=== PATIENT | female | born 1945 | race Caucasian/White ===

== ENCOUNTER 2021-08-31 18:26 | Inpatient (IN) | payer OTHER, MEDICAID ==
[~2021-08-31] VITALS: Ht 152.4 cm; Wt 58.5 kg
[2021-08-31 18:26] VITALS: BP_SYST 131
[~2021-08-31 18:26] MED LIST: ASA81 PO; BUPR300T55 PO; CHOL200075 PO; CRAN450C PO; DIVA250T PO; DULR10 RC; FOLI-43 PO; LORA-258 PO; MELA1TAB29 PO; MEMA5TAB PO; MULT-1189 PO; PRAV10TA PO; ZOLP5TAB2 PO
--- NOTE | 2021-08-31 19:00 | NUR ---
75yo female pt jenna cerda from [facility] for failure to thrive. Per facility pt lost 5 lbs in 1 week; refusing to eat or take medications. Pt aaox2, bulgarian speaker, c/o pain in bilateral thighs. Pt incontinent with diaper on. No distress at this time. advised of pt arrival.
--- NOTE | 2021-08-31 19:11 | NUR ---
Pt alert, responsive, VSS, NAD.
--- NOTE | 2021-08-31 19:11 | NUR ---
report given to alen emerson. all cares transferred at this time.
--- NOTE | 2021-08-31 19:20 | NUR ---
Dr. Bray at bedside.
[2021-08-31] MEDS ORDERED: NACL 0.9% 1,000 ML IV ONE (19:30)
[2021-08-31 20:24] LABS: ANION GAP 11 (5-15); CALCIUM 9.5 mg/dL (8.4-11.0); CHLORIDE 112 mmol/L (98-107); CREATININE 0.73 mg/dL (0.55-1.30); GLUCOSE 141 mg/dL (70-99); POTASSIUM 3.4 mmol/L (3.5-5.1); SODIUM SERUM 148 mmol/L (136-145); UREA NITROGEN, BLOOD 32 mg/dL (8-21)
[2021-08-31 20:30] LABS: BASOPHILS # (AUTO) 0.1 K/uL (0.0-0.2); BASOPHILS % (AUTO) 0.8 % (0.0-2.0); EOSINOPHILS # (AUTO) 0.7 K/uL (0.0-0.4); EOSINOPHILS % (AUTO) 5.9 % (0.0-4.0); HEMATOCRIT 43.7 % (36-48); HEMOGLOBIN 14.3 g/dL (12.0-16.0); LYMPHOCYTES # (AUTO) 2.9 K/uL (1.0-5.5); LYMPHOCYTES % (AUTO) 24.3 % (20.5-51.5); MEAN CORPUSCULAR HEMOGLOBIN 28 pg (27-31); MEAN CORPUSCULAR HGB CONC 33 % (32-36); MEAN CORPUSCULAR VOLUME 85 fL (79.0-98.0); MONOCYTES % (AUTO) 8.2 % (1.7-9.3); NEUTROPHILS # (AUTO) 7.2 K/uL (1.8-7.7); NEUTROPHILS % (AUTO) 60.8 % (40.0-70.0); PLATELET COUNT (AUTO) 277 K/uL (130-430); RED BLOOD CELL COUNT(AUTO) 5.14 MIL/uL (4.2-6.2); RED CELL DISTRIBUTION WIDTH 15.2 % (9.0-15.0); WHITE BLOOD COUNT (AUTO) 11.8 K/uL (4.8-10.8)
[2021-08-31 20:32] LABS: ALANINE AMINOTRANSFERASE 20 U/L (12-78); ALBUMIN 3.1 g/dL (3.4-4.8); ASPARTATE AMINOTRANSFERASE 28 U/L (10-37); LIPASE 126 U/L (73-393); TOTAL BILIRUBIN 0.4 mg/dL (0.0-1.0)
--- NOTE | 2021-08-31 21:00 | NUR ---
Pt alert, denies c/o pain or discomfort, no needs verbalized. VSS, NAD.
--- NOTE | 2021-09-01 | NUR ---
Warm blanket provided. VSS, NAD.
[2021-09-01] MEDS ORDERED: BENZ1TAB76 PO (00:26)
[2021-09-01] MEDS ORDERED: VITD400 PO (00:26)
[2021-09-01] MEDS ORDERED: LIP10 PO (00:26)
[2021-09-01] MEDS ORDERED: IBUP-2018 PO (00:26)
[2021-09-01] MEDS ORDERED: ANT30 PO (00:26)
[2021-09-01] MEDS ORDERED: TRAZ-250 PO (00:26)
[2021-09-01] MEDS ORDERED: SERT100T PO (00:26)
[2021-09-01] MEDS ORDERED: FAMO40OR4 PO (00:26)
[2021-09-01] MEDS ORDERED: ASCO500T20 PO (00:26)
[2021-09-01] MEDS ORDERED: MEGE400O4 GT (00:26)
--- NOTE | 2021-09-01 01:44 | NUR ---
Admit bed requested Patient will be admitted to care of Dr. De La Garza Admitted to MS unit. Diagnosis Failure to Thrive Inpatient (Yes or No) yes Observation (Yes or No) no Orientation concerns or request close to nursing station (Yes or No) yes Covid Status negative On vent or bipap no Isolation requirements no Needs a sitter no From Home (Yes or if No enter name of facility) [facility] Requires Dialysis (Yes or No) no Med Rec Completed (Yes of No) yes
[2021-09-01] MEDS: KCL 20 mEq in D5/0.45NS 1000mL 1,000 ML IV SCH ×2 (02:44→23:33)
--- NOTE | 2021-09-01 02:50 | NUR ---
Patient will be admitted to care [facility]. Admitted to MED SURG unit. Will go to room 104A. Belongings list completed. Complete and up to date summary report printed. SBAR report to be given at bedside with opportunity for questions.
--- NOTE | 2021-09-01 03:00 | NUR ---
Admission Note Received patient from ER with diagnosis of FAILURE TO THRIVE.
[2021-09-01 03:06] VITALS: BP_SYST 130
--- NOTE | 2021-09-01 07:13 | NUR ---
CLOSING NOTES Patient resting in bed - no s/s pain or distress noted. Respirations even and unlabored - head of bed elevated. IV site patent - no s/s redness, infection, or infiltration. Bed locked and in lowest position. call light within reach - bed alarm on.
[2021-09-01 08:00] VITALS: BP_SYST 134
[2021-09-01] MEDS ORDERED: LORazepam 1 MG TABLET PO PRN (10:00)
[2021-09-01] MEDS ORDERED: SERTRALINE HCL 50 MG TABLET PO SCH (10:00)
[2021-09-01] MEDS ORDERED: IBUPROFEN 400 MG TABLET PO PRN (10:00)
[2021-09-01] MEDS ORDERED: MAG-AL HYDROX/SIMETH 30 ML UDC PO SCH (10:00)
[2021-09-01] MEDS: CHOLECALCIFEROL (VITAMIN D-3) 400 UNIT TABLET PO SCH (10:00)
[2021-09-01 11:26] VITALS: BP_SYST 164
[2021-09-01 12:30] VITALS: BP_SYST 119
[2021-09-01] MEDS: BENZTROPINE MESYLATE 1 MG TABLET PO SCH ×2 (12:53→20:23)
[2021-09-01] MEDS: ASPIRIN 81 MG TAB.CHEW PO SCH (12:53)
[2021-09-01] MEDS: FOLIC ACID 1 MG TABLET PO SCH (12:53)
[2021-09-01] MEDS ORDERED: MEGESTROL ACETATE 400 MG/10 ML UDC GT ONE (13:00)
[2021-09-01] MEDS ORDERED: MEGESTROL ACETATE 400 MG/10 ML UDC PO ONE (13:00)
[2021-09-01 13:58] LABS: BILIRUBIN,URINE NEGATIVE (NEGATIVE); BLOOD, URINE 1+ (NEGATIVE); COLOR,URINE YELLOW (YELLOW); GLUCOSE,URINE NEGATIVE (NEGATIVE); KETONES,URINE NEGATIVE (NEGATIVE); LEUKOCYTE ESTERASE ,URINE 2+ (NEGATIVE); NITRITE, URINE NEGATIVE (NEGATIVE); PROTEIN URINE TRACE (NEGATIVE)
[2021-09-01 14:02] LABS: CLARITY/URINE HAZY (CLEAR)
[2021-09-01 14:10] LABS: RBC,URINE 0-3 /HPF (0-3); WBC,URINE 20-50 /HPF (0-3)
[2021-09-01 14:11] LABS: BACTERIA,URINE FEW /HPF (None Seen); MUCUS,URINE None Seen /LPF (None Seen)
[2021-09-01 15:47] VITALS: BP_SYST 131
--- NOTE | 2021-09-01 16:53 | NUR ---
ST EVALUATION COMPLETED. ST TX NOT INDICATED AT THIS TIME. RECOMMEND PUREE TEXTURE/THIN LIQUID DIET WITH 1:1 SUPERVISION AND ASPIRATION PRECAUTIONS.
[2021-09-01 19:30] VITALS: BP_SYST 136
--- NOTE | 2021-09-01 19:30 | NUR ---
PM ASSESSMENT; -Pt is confused, alert to person. Pt is laying in bed comfortably. No s/s any pain,sob,or any acute distress noted. IV site patent of left wrist, no s/s any infiltration noted. IVF D5 1/2NS +20 mEq KCL @ 75ml/hr. Escobar heels redness slowly blanchable noted. Perineal area redness and intact noted. Keep pt cleaned. Turned & repositioned and q 2 hrs prn. Bed alarmed, side rails x3. Fall precaution in place. Cont to monitor pt.
[2021-09-01] MEDS: MEGESTROL ACETATE 400 MG/10 ML UDC PO SCH (20:23)
[2021-09-01] MEDS: MIRTAZAPINE 15 MG TABLET PO SCH (20:23)
[2021-09-01] MEDS: MEMANTINE HCL 5 MG TABLET PO SCH (20:24)
[2021-09-01] MEDS: ENOXAPARIN SODIUM 40 MG/0.4 ML SYRINGE SUBCUT SCH (20:25)
[2021-09-01] MEDS ORDERED: MEGESTROL ACETATE 400 MG/10 ML UDC GT SCH (21:00)
[2021-09-01] MEDS ORDERED: traZODone HCL 50 MG TABLET (DESYREL) PO SCH (21:00)
--- NOTE | 2021-09-01 22:00 | NUR ---
ROUNDS; -Pt is laying in bed comfortably. No s/s any pain,sob,or any acute distress noted. Turned & repositioned and q 2 hrs prn. Bed alarmed, side rails x3. Fall precaution in place. Cont to monitor pt.
[2021-09-01] MEDS ORDERED: CEFEPIME 1 GM/VIAL (MAXIPIME) ONE (23:16)
[2021-09-01] MEDS: CEFEPIME 1 GM in D5W 50 ML IV SCH (23:31)
[2021-09-02] VITALS: BP_SYST 122
--- NOTE | 2021-09-02 02:00 | NUR ---
ROUNDS; -Pt is asleep. No s/s any pain,sob,or any acute distress noted. Pt's condition stable. IVF infusing well, no s/s any infiltration noted. Turned & repositioned and q 2 hrs prn. Bed alarmed, side rails x3. Fall precaution in place. Cont to monitor pt.
--- NOTE | 2021-09-02 04:00 | NUR ---
ROUNDS; -Pt is asleep. No s/s any chest pain, pain,sob,or any acute distress noted. IVF infusing well, no s/s any infiltration noted. Turned & repositioned and q 2 hrs prn. Bed alarmed, side rails x3. Fall precaution in place. Cont to monitor pt.
[2021-09-02] MEDS: KCL 20 mEq in D5/0.45NS 1000mL 1,000 ML IV SCH ×2 (05:20→18:28)
--- NOTE | 2021-09-02 06:33 | NUR ---
CLOSING NOTES; - Pt is laying in bed comfortably. No s/s any pain,sob,or any acute distress noted. IV site patent of left wrist, no s/s any infiltration noted. IVF D5 1/2NS +20 mEq KCL @ 75ml/hr. Pt is cleaned and dry. Turned & repositioned and q 2 hrs prn. Bed alarmed, side rails x3. Fall precaution in place. Will endorse to next shift RN to [facility] care.
[2021-09-02 07:08] LABS: BASOPHILS # (AUTO) 0.1 K/uL (0.0-0.2); BASOPHILS % (AUTO) 0.6 % (0.0-2.0); EOSINOPHILS # (AUTO) 0.6 K/uL (0.0-0.4); EOSINOPHILS % (AUTO) 6.6 % (0.0-4.0); HEMOGLOBIN 13.5 g/dL (12.0-16.0); LYMPHOCYTES # (AUTO) 3.1 K/uL (1.0-5.5); LYMPHOCYTES % (AUTO) 34.6 % (20.5-51.5); MEAN CORPUSCULAR HEMOGLOBIN 28 pg (27-31); MEAN CORPUSCULAR HGB CONC 33 % (32-36); MEAN CORPUSCULAR VOLUME 86 fL (79.0-98.0); MONOCYTES # (AUTO) 0.6 K/uL (0.0-1.0); NEUTROPHILS # (AUTO) 4.5 K/uL (1.8-7.7); NEUTROPHILS % (AUTO) 51.2 % (40.0-70.0); PLATELET COUNT (AUTO) 212 K/uL (130-430); RED BLOOD CELL COUNT(AUTO) 4.77 MIL/uL (4.2-6.2); RED CELL DISTRIBUTION WIDTH 15.9 % (9.0-15.0); WHITE BLOOD COUNT (AUTO) 8.9 K/uL (4.8-10.8)
[2021-09-02 07:38] LABS: ANION GAP 7 (5-15); CALCIUM 8.1 mg/dL (8.4-11.0); CHLORIDE 113 mmol/L (98-107); CREATININE 0.59 mg/dL (0.55-1.30); GLUCOSE 85 mg/dL (70-99); POTASSIUM 3.7 mmol/L (3.5-5.1); SODIUM SERUM 146 mmol/L (136-145); UREA NITROGEN, BLOOD 15 mg/dL (8-21)
[2021-09-02 08:01] VITALS: BP_SYST 125
--- NOTE | 2021-09-02 08:03 | NUR ---
Initial notes awake, Denies any pain or discomfort. on room air, saturating 100%. IVF infusing well. Safety precaution observed. Bed alarm on. Will monitor.
[2021-09-02] MEDS: CHOLECALCIFEROL (VITAMIN D-3) 400 UNIT TABLET PO SCH (08:30)
[2021-09-02] MEDS: FOLIC ACID 1 MG TABLET PO SCH (08:30)
[2021-09-02] MEDS: ASCORBIC ACID 500 MG TABLET PO SCH ×2 (08:30→21:53)
[2021-09-02] MEDS: MEGESTROL ACETATE 400 MG/10 ML UDC PO SCH ×2 (08:30→21:52)
[2021-09-02] MEDS: BENZTROPINE MESYLATE 1 MG TABLET PO SCH ×2 (08:31→21:53)
[2021-09-02] MEDS: MEMANTINE HCL 5 MG TABLET PO SCH ×2 (08:31→21:53)
[2021-09-02] MEDS: ASPIRIN 81 MG TAB.CHEW PO SCH (08:32)
[2021-09-02] MEDS: CEFEPIME 1 GM in D5W 50 ML IV SCH ×2 (09:59→21:52)
--- NOTE | 2021-09-02 11:00 | NUR ---
Notes- pt refused to eat her breakfast. she only take one bite of her meds mixed with apple sauce .
[2021-09-02 11:25] VITALS: BP_SYST 149
--- NOTE | 2021-09-02 14:07 | NUR ---
Notes Resting. turn and repositioned.No signs of distress noted.
[2021-09-02 15:30] VITALS: BP_SYST 116
--- NOTE | 2021-09-02 18:50 | NUR ---
closing notes Awake, resting. No distress, IVF infusing well.
[2021-09-02 20:00] VITALS: BP_SYST 94
--- NOTE | 2021-09-02 20:00 | NUR ---
Opening notes Pt awake, calm, no s/s distress. VSS. IVF infusing at ordered rate L. wrist wrapped in gauze. Call light within reach. Bed low, locked, siderails up 4, alarm on. Safety maintained. To monitor.
[2021-09-02] MEDS: ENOXAPARIN SODIUM 40 MG/0.4 ML SYRINGE SUBCUT SCH (21:51)
--- NOTE | 2021-09-02 21:52 | NUR ---
Med pass-pt refused meds Pt awake, alert, pt refused meds with applesause. Pt would shake her head and pushed nurse's hand away.
[2021-09-02] MEDS: MIRTAZAPINE 15 MG TABLET PO SCH (21:53)
[2021-09-03 00:05] VITALS: BP_SYST 148
--- NOTE | 2021-09-03 00:05 | NUR ---
Rounds Pt asleep, no s/s distress noted. IVF infusing at ordered rate L. wrist. Bed low, locked, siderails up x4, alarm on. To monitor.
--- NOTE | 2021-09-03 06:30 | NUR ---
Closing notes Pt awake, no s/s distress. IVF infusing at ordered rate L. wrist wrapped in gauze. Call light within reach. Bed low, locked, siderails up 4, alarm on. Safety/isolation maintained. To endorse to AM nurse.
[2021-09-03] MEDS: KCL 20 mEq in D5/0.45NS 1000mL 1,000 ML IV SCH ×2 (06:36→20:42)
[2021-09-03 07:24] LABS: BASOPHILS # (AUTO) 0.1 K/uL (0.0-0.2); BASOPHILS % (AUTO) 0.9 % (0.0-2.0); EOSINOPHILS # (AUTO) 0.4 K/uL (0.0-0.4); EOSINOPHILS % (AUTO) 4.9 % (0.0-4.0); HEMATOCRIT 40.2 % (36-48); HEMOGLOBIN 13.3 g/dL (12.0-16.0); LYMPHOCYTES # (AUTO) 4.2 K/uL (1.0-5.5); LYMPHOCYTES % (AUTO) 47.7 % (20.5-51.5); MEAN CORPUSCULAR HEMOGLOBIN 28 pg (27-31); MEAN CORPUSCULAR HGB CONC 33 % (32-36); MEAN CORPUSCULAR VOLUME 86 fL (79.0-98.0); MONOCYTES # (AUTO) 0.6 K/uL (0.0-1.0); NEUTROPHILS # (AUTO) 3.5 K/uL (1.8-7.7); NEUTROPHILS % (AUTO) 39.5 % (40.0-70.0); PLATELET COUNT (AUTO) 200 K/uL (130-430); RED BLOOD CELL COUNT(AUTO) 4.69 MIL/uL (4.2-6.2); RED CELL DISTRIBUTION WIDTH 15.7 % (9.0-15.0); WHITE BLOOD COUNT (AUTO) 8.8 K/uL (4.8-10.8)
[2021-09-03 08:00] VITALS: BP_SYST 121
[2021-09-03 08:02] LABS: ANION GAP 6 (5-15); CALCIUM 8.3 mg/dL (8.4-11.0); CHLORIDE 112 mmol/L (98-107); CREATININE 0.62 mg/dL (0.55-1.30); GLUCOSE 83 mg/dL (70-99); POTASSIUM 4.1 mmol/L (3.5-5.1); SODIUM SERUM 143 mmol/L (136-145); UREA NITROGEN, BLOOD 9 mg/dL (8-21)
[2021-09-03] MEDS: ASPIRIN 81 MG TAB.CHEW PO SCH (09:00)
[2021-09-03] MEDS: FOLIC ACID 1 MG TABLET PO SCH (09:00)
[2021-09-03] MEDS: ASCORBIC ACID 500 MG TABLET PO SCH ×2 (09:00→20:43)
[2021-09-03] MEDS: CHOLECALCIFEROL (VITAMIN D-3) 400 UNIT TABLET PO SCH (09:00)
[2021-09-03] MEDS: MEGESTROL ACETATE 400 MG/10 ML UDC PO SCH ×2 (09:00→20:43)
[2021-09-03] MEDS: BENZTROPINE MESYLATE 1 MG TABLET PO SCH ×2 (09:00→20:43)
[2021-09-03] MEDS: MEMANTINE HCL 5 MG TABLET PO SCH ×2 (09:00→20:43)
[2021-09-03] MEDS: CEFEPIME 1 GM in D5W 50 ML IV SCH ×2 (10:03→20:41)
[2021-09-03 11:26] VITALS: BP_SYST 132
[2021-09-03 15:31] VITALS: BP_SYST 128
--- NOTE | 2021-09-03 18:45 | NUR ---
PATIENT HAS REFUSED ORAL MEDS AND ORAL INTAKE TODAY. HOB ELEVATED SEMIFOWLER'S POSITION. NO S/S ACUTE DISTRESS NOTED. I SPOKE WITH PT'S SON AND ENCOURAGED FAMILY TO TRY TO COME AND ENCOURAGE PATIENT TO EAT. HE SAID HE DID NOT THINK IT WAS A GOOD IDEA, BECAUSE HE TRIED IT WHEN SHE WAS IN THE SNF AND IT INEFFECTIVE. WILL CONTINUE TO TRY TO ENCOURAGE PO INTAKE. PATIENT EXHIBITS NO S/S ACUTE DISTRESS.
[2021-09-03] MEDS: MIRTAZAPINE 15 MG TABLET PO SCH (20:43)
[2021-09-03] MEDS: ENOXAPARIN SODIUM 40 MG/0.4 ML SYRINGE SUBCUT SCH (20:52)
[2021-09-03 21:00] VITALS: BP_SYST 103
[2021-09-04] VITALS: BP_SYST 109
[2021-09-04 07:36] LABS: BASOPHILS # (AUTO) 0.1 K/uL (0.0-0.2); EOSINOPHILS # (AUTO) 0.5 K/uL (0.0-0.4); EOSINOPHILS % (AUTO) 5.9 % (0.0-4.0); HEMATOCRIT 34.3 % (36-48); HEMOGLOBIN 11.3 g/dL (12.0-16.0); LYMPHOCYTES # (AUTO) 3.5 K/uL (1.0-5.5); LYMPHOCYTES % (AUTO) 44.4 % (20.5-51.5); MEAN CORPUSCULAR HEMOGLOBIN 29 pg (27-31); MEAN CORPUSCULAR HGB CONC 33 % (32-36); MEAN CORPUSCULAR VOLUME 87 fL (79.0-98.0); MONOCYTES # (AUTO) 0.7 K/uL (0.0-1.0); MONOCYTES % (AUTO) 9.1 % (1.7-9.3); NEUTROPHILS # (AUTO) 3.2 K/uL (1.8-7.7); NEUTROPHILS % (AUTO) 39.6 % (40.0-70.0); PLATELET COUNT (AUTO) 181 K/uL (130-430); RED BLOOD CELL COUNT(AUTO) 3.96 MIL/uL (4.2-6.2); RED CELL DISTRIBUTION WIDTH 15.8 % (9.0-15.0)
[2021-09-04 08:00] VITALS: BP_SYST 114
--- NOTE | 2021-09-04 08:00 | NUR ---
Opening Notes Patient is laying in bed awake. A/O x0. Patient does not respond to name, however she is awake. No apparent distress noted. Vitals as charted. Call light within reach. Safety and fall precautions in place. All needs met.
[2021-09-04] MEDS: ASCORBIC ACID 500 MG TABLET PO SCH ×2 (09:00→21:00)
[2021-09-04] MEDS: MEMANTINE HCL 5 MG TABLET PO SCH ×2 (09:00→21:00)
[2021-09-04] MEDS: BENZTROPINE MESYLATE 1 MG TABLET PO SCH ×2 (09:00→22:00)
[2021-09-04] MEDS: CHOLECALCIFEROL (VITAMIN D-3) 400 UNIT TABLET PO SCH (09:00)
[2021-09-04] MEDS: FOLIC ACID 1 MG TABLET PO SCH (09:00)
[2021-09-04] MEDS: ASPIRIN 81 MG TAB.CHEW PO SCH (09:00)
[2021-09-04] MEDS: MEGESTROL ACETATE 400 MG/10 ML UDC PO SCH ×2 (09:00→21:00)
[2021-09-04 09:24] LABS: ANION GAP 9 (5-15); CALCIUM 8.1 mg/dL (8.4-11.0); CHLORIDE 110 mmol/L (98-107); CREATININE 0.59 mg/dL (0.55-1.30); GLUCOSE 105 mg/dL (70-99); POTASSIUM 4.1 mmol/L (3.5-5.1); SODIUM SERUM 139 mmol/L (136-145); UREA NITROGEN, BLOOD 7 mg/dL (8-21)
--- NOTE | 2021-09-04 10:15 | NUR ---
Note Patient refused medication. I encouraged patient and educated on importance of taking medication, patient continued to refuse. Also attempted to help patient eat, she refused. Will continue to encourage food, fluids and medication.
[2021-09-04] MEDS: CEFEPIME 1 GM in D5W 50 ML IV SCH ×2 (10:18→22:42)
[2021-09-04] MEDS: KCL 20 mEq in D5/0.45NS 1000mL 1,000 ML IV SCH ×2 (10:29→22:42)
[2021-09-04 11:25] VITALS: BP_SYST 120
--- NOTE | 2021-09-04 12:20 | NUR ---
Note Spoke to patient's son Narinder and provided an update of patient status. Encouraged Andrew to come visit his mother and also encourage her to eat and take medication. Patient's son states he will not be able to come visit.
[2021-09-04 15:47] VITALS: BP_SYST 130
--- NOTE | 2021-09-04 17:52 | NUR ---
Paged Dr. De La Garza Paged Dr. De La Garza to update on patient status. Patient is refusing to eat or take any medication despite encouragement.
--- NOTE | 2021-09-04 18:19 | NUR ---
Note Made several attempts to encourage patient to eat. Patient became upset and asked me to leave her room. Call light within reach. Safety and fall precautions in place. All needs met.
--- NOTE | 2021-09-04 18:28 | NUR ---
Closing Note Patient is slaying in bed awake. A/O x0. No apparent distress noted. Call light within reach. Safety and fall precautions in place. Encouraged patient to eat, patient not cooperative. Will endorse care to warehouse worker 2nd shift RN.
--- NOTE | 2021-09-04 19:00 | NUR ---
Spoke with Dr. De La Garza Spoke with Dr. De La Garza regarding patient status and refusal to take medication and to eat. He will request a GI consult. No new orders given.
[2021-09-04] MEDS: MIRTAZAPINE 15 MG TABLET PO SCH (21:00)
[2021-09-04] MEDS: ENOXAPARIN SODIUM 40 MG/0.4 ML SYRINGE SUBCUT SCH (21:00)
--- NOTE | 2021-09-04 21:30 | NUR ---
PT REFUSED MEDS. WAS ABLE TO GIVE IV ANTIBIOTICS AND IV FLUIDS. PT KEPT WAVING HANDS IN AIR SIGNALING ME TO LEAVE THE ROOM. ATTEMPTED TO EDUCATED PT ON IMPORTANCE OF MEDICATION
[2021-09-04 21:40] VITALS: BP_SYST 136
--- NOTE | 2021-09-05 02:16 | NUR ---
PT REFUSED MIDNIGHT VITALS WITH ALUMNI COORDINATOR. ASSISTED ALUMNI COORDINATOR WITH ATTEMPTING TO TAKE VITALS BUT PT BEGAN HITTING AT KICKING AT US. VITALS WERE NOT TAKEN
[2021-09-05 08:00] VITALS: BP_SYST 136
--- NOTE | 2021-09-05 08:30 | NUR ---
OPENING NOTE Patient in bed resting with eyes open. Patient is alert and oriented to self. Patient had an excellent appetite and ate 75% of her breakfast and was able to feed herself. IV is clean, dry, intact and running prescribed fluids. Updated the patient on her plan of care for the day. All needs met at this time and safety checks made.
[2021-09-05] MEDS: MEGESTROL ACETATE 400 MG/10 ML UDC PO SCH ×2 (08:53→21:00)
[2021-09-05] MEDS: FOLIC ACID 1 MG TABLET PO SCH (08:53)
[2021-09-05] MEDS: CHOLECALCIFEROL (VITAMIN D-3) 400 UNIT TABLET PO SCH (08:53)
[2021-09-05] MEDS: BENZTROPINE MESYLATE 1 MG TABLET PO SCH ×2 (08:53→21:00)
[2021-09-05] MEDS: MEMANTINE HCL 5 MG TABLET PO SCH ×2 (08:54→21:00)
[2021-09-05] MEDS: ASCORBIC ACID 500 MG TABLET PO SCH ×2 (08:54→21:00)
[2021-09-05] MEDS: ASPIRIN 81 MG TAB.CHEW PO SCH (08:54)
--- NOTE | 2021-09-05 09:02 | NUR ---
VOMIT Patient vomited, stated that she ate too much too quickly. Cleaned patient and provided comfort measures. All needs met at this time.
[2021-09-05] MEDS: CEFEPIME 1 GM in D5W 50 ML IV SCH ×2 (11:07→21:30)
[2021-09-05] MEDS: KCL 20 mEq in D5/0.45NS 1000mL 1,000 ML IV SCH (11:08)
[2021-09-05 11:23] VITALS: BP_SYST 118
--- NOTE | 2021-09-05 15:19 | NUR ---
ROUNDS Patient is awake and resting in bed, oriented to self. Patient has been alert and talkative. No sign of distress and patient denies pain. No vomiting and patient denies nausea. All needs met at this time and safety checks made.
[2021-09-05 15:38] VITALS: BP_SYST 120
--- NOTE | 2021-09-05 19:40 | NUR ---
CLOSING NOTE Patient in bed resting after eating dinner. No sign of distress, patient denies pain. IV is clean, dry, intact and patent running prescribed fluids. Patient tolerating her food well, no complaints of nausea and no vomiting. All needs met at this time and safety checks made. Endorsed to hotel night auditor nurse.
[2021-09-05] MEDS: MIRTAZAPINE 15 MG TABLET PO SCH (21:00)
[2021-09-05] MEDS: ENOXAPARIN SODIUM 40 MG/0.4 ML SYRINGE SUBCUT SCH (21:00)
[2021-09-06 00:31] VITALS: BP_SYST 121
[2021-09-06] MEDS: KCL 20 mEq in D5/0.45NS 1000mL 1,000 ML IV SCH ×2 (02:40→16:00)
--- NOTE | 2021-09-06 06:00 | NUR ---
NO CHANGES NOTED THROUGHOUT THE SHIFT, PT RESTING COMFORTABLY IN BED, AOX1, CONFUSED AND DISORIENTED, NO DISTRESS OR DISCOMFORT NOTED, BREATHING EVEN AND UNLABORED, ALL FALL PROTOCOLS MAINTAINED, REFUSED ALL PO MEDS,ALL CARE RENDERED TO PT AT THIS TIME, WILL ENDORSED TO AM NURSE.
--- NOTE | 2021-09-06 07:25 | NUR ---
SHIFT REPORT REPORT GIVEN TO KAROLINE RN FOR CONTINUITY OF CARE ALL QUESTIONS WERE ANSWERED AND RN VERBALIZED UNDERSTANDING.
[2021-09-06] MEDS: ASCORBIC ACID 500 MG TABLET PO SCH ×2 (08:24→21:00)
[2021-09-06] MEDS: CEFEPIME 1 GM in D5W 50 ML IV SCH ×2 (08:24→21:14)
[2021-09-06] MEDS: CHOLECALCIFEROL (VITAMIN D-3) 400 UNIT TABLET PO SCH (08:24)
[2021-09-06] MEDS: ASPIRIN 81 MG TAB.CHEW PO SCH (08:24)
[2021-09-06] MEDS: BENZTROPINE MESYLATE 1 MG TABLET PO SCH ×2 (08:24→21:00)
[2021-09-06] MEDS: MEGESTROL ACETATE 400 MG/10 ML UDC PO SCH ×2 (08:24→21:00)
[2021-09-06] MEDS: FOLIC ACID 1 MG TABLET PO SCH (08:24)
[2021-09-06] MEDS: MEMANTINE HCL 5 MG TABLET PO SCH ×2 (09:00→21:00)
[2021-09-06 11:32] VITALS: BP_SYST 148
--- NOTE | 2021-09-06 11:36 | NUR ---
CONSULTATION PAGED REASON FOR CONSULTATION:CONFUSION WAS CONSULT CALLED?Y -PERSON WHO WAS NOTIFIED TEXT MESSAGED MASON JAMESON: CONSULTING PHYSICIAN:MASON JAMESON APPLICATION INTEGRATOR SPECIALTY:NEURO APPLICATION INTEGRATOR PHONE NUMBER:[phone] REQUESTING PHYSICIAN:ADOLPH MADRID
--- NOTE | 2021-09-06 11:43 | NUR ---
CONSULTATION PAGED REASON FOR CONSULTATION:PSYCHOSIS WAS CONSULT CALLED?Y -PERSON WHO WAS NOTIFIEDLEFT A VOICEMAIL WITH JOE NUNES: CONSULTING PHYSICIAN:JOE NUNES SLIP FILLER SPECIALTY:PSYCHE SLIP FILLER PHONE NUMBER:[phone] REQUESTING PHYSICIAN:ADOLPH MADRID
[2021-09-06 15:21] VITALS: BP_SYST 134
--- NOTE | 2021-09-06 18:45 | NUR ---
PT HAS HAD A QUIET SHIFT. NOTED PT GOES FROM BEING ALERT AND TALKATIVE TO NOT RESPONDING. MD IS AWARE. PLAN IS TO HAVE A NEURO AND PSYCH CONSULT. PT'S SON VISITED THIS SHIFT. PT WAS NO TALKING AND RESPONDING DURING THIS TIME. RESPIRATIONS EVEN ET UNLABORED. NO S/S ACUTE DISTRESS NOTED.
[2021-09-06 20:00] VITALS: BP_SYST 114
--- NOTE | 2021-09-06 20:00 | NUR ---
REC'D PT IN BED AOX1, NO DISTRESS OR DISCOMFORT NOTED, BREATHING EVEN AND UNLABORED, DENIES PAIN, VITAL SIGNS STABLE, PT RESTING COMFORTABLY IN BED, ALL FALL PROTOCOLS MAINTAINED, BED IN LOWEST POSITION, CALL LIGHT WITHIN REACH, EDUCATED PT TO CALL FOR ASSISTANCE WHEN NEEDED, PT VERBALIZED UNDERSTANDING, WILL CONTINUE TO MONITOR.
[2021-09-06] MEDS: ENOXAPARIN SODIUM 40 MG/0.4 ML SYRINGE SUBCUT SCH (21:00)
[2021-09-06] MEDS: MIRTAZAPINE 15 MG TABLET PO SCH (21:00)
[2021-09-07 00:13] VITALS: BP_SYST 133
--- NOTE | 2021-09-07 04:00 | NUR ---
NO CHANGES NOTED THROUGHOUT THE SHIFT, PT RESTING COMFORTABLY IN BED, AOX4, NO DISTRESS OR DISCOMFORT NOTED, BREATHING EVEN AND UNLABORED, ALL FALL PROTOCOLS MAINTAINED, REPOSITIONS SELF PER COMFORT, WILL CONTINUE TO MONITOR. Addendum: 09/07/21 at 0605 by [facility] assistant professor of mathematics NO CHANGES NOTED THROUGHOUT THE SHIFT, PT RESTING COMFORTABLY IN BED, NO DISTRESS OR DISCOMFORT NOTED, BREATHING EVEN AND UNLABORED, ALL FALL PROTOCOLS MAINTAINED, REPOSITIONS SELF PER COMFORT, WILL CONTINUE TO MONITOR.
[2021-09-07] MEDS: KCL 20 mEq in D5/0.45NS 1000mL 1,000 ML IV SCH ×2 (05:39→18:50)
[2021-09-07 07:19] LABS: BASOPHILS # (AUTO) 0.1 K/uL (0.0-0.2); BASOPHILS % (AUTO) 0.7 % (0.0-2.0); EOSINOPHILS # (AUTO) 0.2 K/uL (0.0-0.4); EOSINOPHILS % (AUTO) 2.3 % (0.0-4.0); HEMATOCRIT 37.9 % (36-48); HEMOGLOBIN 12.5 g/dL (12.0-16.0); LYMPHOCYTES # (AUTO) 4.1 K/uL (1.0-5.5); LYMPHOCYTES % (AUTO) 41.4 % (20.5-51.5); MEAN CORPUSCULAR HEMOGLOBIN 28 pg (27-31); MEAN CORPUSCULAR HGB CONC 33 % (32-36); MEAN CORPUSCULAR VOLUME 84 fL (79.0-98.0); MONOCYTES # (AUTO) 0.9 K/uL (0.0-1.0); NEUTROPHILS # (AUTO) 4.7 K/uL (1.8-7.7); NEUTROPHILS % (AUTO) 46.6 % (40.0-70.0); PLATELET COUNT (AUTO) 224 K/uL (130-430); RED CELL DISTRIBUTION WIDTH 15.8 % (9.0-15.0)
--- NOTE | 2021-09-07 07:19 | NUR ---
SHIFT CHANGE REPORT GIVEN TO NORMA RN FOR CONTINUITY OF CARE ALL QUESTIONS WERE ANSWERED AND RN VERBALIZED UNDERSTANDING.
[2021-09-07 07:35] LABS: ANION GAP 9 (5-15); CHLORIDE 109 mmol/L (98-107); CREATININE 0.52 mg/dL (0.55-1.30); GLUCOSE 102 mg/dL (70-99); POTASSIUM 3.8 mmol/L (3.5-5.1); SODIUM SERUM 140 mmol/L (136-145); UREA NITROGEN, BLOOD 9 mg/dL (8-21)
[2021-09-07] MEDS: FOLIC ACID 1 MG TABLET PO SCH (09:00)
[2021-09-07] MEDS: BENZTROPINE MESYLATE 1 MG TABLET PO SCH ×2 (09:00→20:46)
[2021-09-07] MEDS: MEGESTROL ACETATE 400 MG/10 ML UDC PO SCH ×2 (09:00→20:46)
[2021-09-07] MEDS: ASPIRIN 81 MG TAB.CHEW PO SCH (09:00)
[2021-09-07] MEDS: ASCORBIC ACID 500 MG TABLET PO SCH ×2 (09:00→20:46)
[2021-09-07] MEDS: CHOLECALCIFEROL (VITAMIN D-3) 400 UNIT TABLET PO SCH (09:00)
[2021-09-07] MEDS: MEMANTINE HCL 5 MG TABLET PO SCH ×2 (09:00→20:46)
[2021-09-07] MEDS: CEFEPIME 1 GM in D5W 50 ML IV SCH ×2 (09:35→20:45)
--- NOTE | 2021-09-07 09:35 | NUR ---
PATIENT REFUSED ALL AM PO MEDS, EXPLAINED RISKS OF DECLINING MEDS, IV AB ADMINISTERED
[2021-09-07 11:35] VITALS: BP_SYST 119
--- NOTE | 2021-09-07 14:50 | NUR ---
Discharge Planning: RUSTY emailed [email or web address] pt referral to [facility] j[facility] P#[phone] fax not working. RUSTY to follow up Addendum: 09/08/21 at 1035 by Chel Jean DP RUSTY followed up patient accepted to [facility] P#[phone] Rm 221A, transport arranged with [facility] [phone] 3:00pm P/U. RUSTY made nurse and CM aware patient packet take nurse station.
[2021-09-07 15:28] VITALS: BP_SYST 130
--- NOTE | 2021-09-07 16:30 | NUR ---
UPDATE GIVEN TO SON VIA PHONE, NOTIFIED HIM THAT PATIENT IS REFUSING TO TAKE MEDS AND EAT MEALS, VERBALIZED UNDERSTANDING. NO ADDITIONAL CONCERNS AT THIS TIME
--- NOTE | 2021-09-07 18:30 | NUR ---
FED PATIENT 50% OF DINNER, TOLERATED WELL, NO C/O PAIN OR DISCOMFORT AT THIS TIME, WILL ENDORSE CARE TO PM NURSE
[2021-09-07] MEDS: ENOXAPARIN SODIUM 40 MG/0.4 ML SYRINGE SUBCUT SCH (20:46)
[2021-09-07] MEDS: MIRTAZAPINE 15 MG TABLET PO SCH (20:46)
--- NOTE | 2021-09-07 21:00 | NUR ---
PATIENT REFUSED ALL PM PO MEDS, EXPLAINED RISKS OF DECLINING MEDS, IV AB ADMINISTERED
[2021-09-08 01:06] VITALS: BP_SYST 149
--- NOTE | 2021-09-08 04:30 | NUR ---
NO CHANGES NOTED THROUGHOUT THE SHIFT, PT RESTING COMFORTABLY IN BED, NO DISTRESS OR DISCOMFORT NOTED, BREATHING EVEN AND UNLABORED, ALL FALL PROTOCOLS MAINTAINED, REPOSITIONS SELF PER COMFORT, WILL CONTINUE TO MONITOR.
--- NOTE | 2021-09-08 07:20 | NUR ---
opening note received sbar from night rn, patient in bed, respirations even, non labored, bed in low and locked position call light within reach, IVF's running as ordered.
--- NOTE | 2021-09-08 07:26 | NUR ---
SHIFT CHANGE REPORT GIVEN TO VICTORINO RN FOR CONTINUITY OF CARE ALL QUESTIONS WERE ANSWERED AND RN VERBALIZED UNDERSTANDING.
[2021-09-08 08:00] VITALS: BP_SYST 125
--- NOTE | 2021-09-08 08:38 | NUR ---
MD DR ROLLINS BEDSIDE EXAMINING PATIENT
[2021-09-08] MEDS: MEGESTROL ACETATE 400 MG/10 ML UDC PO SCH (09:00)
[2021-09-08] MEDS: FOLIC ACID 1 MG TABLET PO SCH (09:00)
[2021-09-08] MEDS: CHOLECALCIFEROL (VITAMIN D-3) 400 UNIT TABLET PO SCH (09:00)
[2021-09-08] MEDS: MEMANTINE HCL 5 MG TABLET PO SCH (09:00)
[2021-09-08] MEDS: ASPIRIN 81 MG TAB.CHEW PO SCH (09:00)
[2021-09-08] MEDS: ASCORBIC ACID 500 MG TABLET PO SCH (09:00)
[2021-09-08] MEDS: BENZTROPINE MESYLATE 1 MG TABLET PO SCH (09:00)
--- NOTE | 2021-09-08 09:13 | NUR ---
DISCHARGE PLANNING Per Dc data recovery planner, pt accepted back at [facility] & have bed for pt, they are requesting early transfer, dc data recovery planner setting up transportation. Called & updated pt's nurse. Called & informed sister Anup Gutierrez, , agrees with dc back to [facility] today.
--- NOTE | 2021-09-08 10:37 | NUR ---
Discharge Planning: DCP followed up patient accepted to [facility] P#[phone] Rm 221A, transport arranged with [facility] 3:00pm P/U. DCP made nurse and CM aware patient packet take nurse station.
--- NOTE | 2021-09-08 10:51 | NUR ---
ADL's patient voided, provided patient with bed bath, changed linens, provided oral care, repositioned patient. Patient tolerated well, no signs of distress noted. bed in low and locked position, call light within reach
[2021-09-08 12:00] VITALS: BP_SYST 112
[2021-09-08] MEDS: KCL 20 mEq in D5/0.45NS 1000mL 1,000 ML IV SCH (12:00)
--- NOTE | 2021-09-08 13:00 | NUR ---
NURSE NOTE PATIENT VOIDED, PROVIDED KATE CARE, CHANGED LINENS, REPOSITIONED
--- NOTE | 2021-09-08 13:36 | NUR ---
report provided report to Jin Wolf.
[2021-09-08 13:42] VITALS: BP_SYST 112
--- NOTE | 2021-09-08 16:00 | NUR ---
PT TRANSFERRED Report given to Jin Yoon. Transfer packet with Transfer Orders and Medication Reconciliation form given to EMT with report. Exitcare provided. [facility] ID band removed, replaced with ID band with pt's name and . IV catheter removed, intact and dressing applied, no active bleeding. All belongings sent with patient. Patient left floor via gurney escorted by EMT in no distress.
== END 2021-09-08 16:00 | DRG 640 ==
LOC: SED 18:26 → SMU 09-01 01:16
PROVIDERS: ADMIT Family Medicine; ATTEND Family Medicine
DX: E86.0 Dehydration (principal); G93.41 Metabolic encephalopathy; N39.0 Urinary tract infection, site not specified; N17.9 Acute kidney failure, unspecified; R62.7 Adult failure to thrive; F03.90 Unspecified dementia, unspecified severity, without behavioral disturbance, psychotic disturbance, mood disturbance, and anxiety; M19.90 Unspecified osteoarthritis, unspecified site; E78.5 Hyperlipidemia, unspecified; Z20.822 Contact with and (suspected) exposure to COVID-19; I10 Essential (primary) hypertension; Z87.891 Personal history of nicotine dependence; Z68.25 Body mass index [BMI] 25.0-25.9, adult
CPT/HCPCS: 36415; 71045; 76700-TC; 80048; 80053; 81000; 82803-TC; 83605; 83690; 83735; 83874; 84484; 85025; 87040; 87081; 87086; 92610-GN; 93005; 96360; 99285; J0692; J1650; J7060